=== PATIENT | female | born 1975 | race Caucasian/White ===

== ENCOUNTER 2017-03-06 19:52 | Emergency (ER) | payer SELFPAY ==
[~2017-03-06 19:52] MED LIST: PRENATAL FORMUL PO
--- NOTE | 2017-03-06 22:48 | DIAGNOSTIC IMAGING REPORT ---
PROCEDURE: US 2ND TRIMESTER INDICATION: ABNORMAL BLEEDING TECHNIQUE: Molina scale, color, and spectral Doppler images of the second trimester gravid uterus were obtained. COMPARISON: None. FINDINGS: Single intrauterine with variable presentation and posterior fundal placenta without previa. Normal closed cervix measures 3.2 cm. Heart rate 152 bpm. [place]-rump length 7.8 cm, 13 weeks 6 days. GEORGE 09/05/2017. IMPRESSION: 1. Single live intrauterine 13-week 6 days 2. GEORGE 09/05/2017.
--- NOTE | 2017-03-06 22:48 | DIAGNOSTIC IMAGING REPORT ---
PROCEDURE: US 2ND TRIMESTER INDICATION: ABNORMAL BLEEDING TECHNIQUE: Molina scale, color, and spectral Doppler images of the second trimester gravid uterus were obtained. COMPARISON: None. FINDINGS: Single intrauterine with variable presentation and posterior fundal placenta without previa. Normal closed cervix measures 3.2 cm. Heart rate 152 bpm. [place]-rump length 7.8 cm, 13 weeks 6 days. GEORGE 09/05/2017. IMPRESSION: 1. Single live intrauterine 13-week 6 days 2. GEORGE 09/05/2017.
--- NOTE | 2017-03-07 00:14 | ED CLINICAL REPORT ---
Clinical Report - Physicians/Mid Levels [facility] [address] [place] [address] 03/06/2017 19:52 Patient: RUSS BASS Time Seen: 20:06. Arrived- Police present. Historian- patient. Note: . CPT: ER phys charges level 4 (#[id number]). HISTORY OF PRESENT ILLNESS Chief Complaint: PELVIC PAIN and VAGINAL BLEEDING. This started today and still present. It was gradual in onset and has been waxing/waning. The symptoms are described as moderate. Modifying factors. Not worsened by anything. Not relieved by anything. The patient has had pelvic pain and abnormal bleeding described as heavier than normal period. She has missed a period. No urinary frequency or urgency of urination. (Russ said she believes she is about 2 weeks after having a positive home test. She had sudden onset bleeding around 1900 tonight. When giving urine in the ED she describes feeling/hearing a pop when she was using the bathroom.). Currently . confirmed with home test. Similar symptoms previously: ( Seen at [facility] ED on 11/02/2015 for miscariage). Recent medical care: Not recently seen/assessed. REVIEW OF SYSTEMS No nausea, vomiting, diarrhea, black stools or headache. No fever, chills, sore throat, cough or difficulty breathing. No chest pain, skin rash, enlarged lymph nodes or joint pain. All systems otherwise negative, except as recorded above. PAST HISTORY ( OB history: G 3; P 1; Ab 1. . . OB History. ADDITIONAL SURGERIES: .). No history of ectopic . Medications: None. Allergies: No Known Drug Allergy. SOCIAL HISTORY History of heavy IV drug use: heroin. ADDITIONAL NOTES The nursing notes have been reviewed. PHYSICAL EXAM Vital Signs: 03/06/2017 19:53 BP: 137/96. HR: 108. RR: 16. O2 saturation: 100%. Temp: 98.3 F. Pain level now: 5/10. Appearance: Alert. Oriented X3. Patient in mild distress. Eyes: No scleral icterus. ENT: Pharynx normal. No hearing deficit or pharyngeal erythema. Neck: Neck supple. CVS: Tachycardia. Heart sounds normal. Respiratory: No respiratory distress. Breath sounds normal. Abdomen: Soft. Back: Normal external inspection. No CVA tenderness. : Slight vaginal bleeding, consisting of bright red blood, via the cervical os. Cervical os closed. Bimanual exam normal. No tenderness present on bimanual exam. No tissue present in the cervical os. Skin: Skin warm and dry. Extremities: Extremities nontender. No lower extremity edema. Neuro: Oriented X 3. Mood/affect normal. No motor deficit. LABS, X-RAYS, AND EKG Pelvic Sonogram: An intrauterine (14 week size) is present. Cardiac activity present. No subchorionic hemorrhage or placental abruption. Study type: bedside transvaginal evaluation. The study was independently viewed by me and interpreted contemporaneously by me. Prior studies were not available for comparison. Laboratory Tests: UA-Culture if indicated: (BALJIT: 03/06/2017 20:03) ( MsgRcvd 03/06/2017 20:56) Final results Test Result Flag Units (Reference) URINE COLOR RED URINE APPEARANCE CLOUDY URINE GLUCOSE NEGATIVE (NEGATIVE) URINE BILIRUBIN NEGATIVE (NEGATIVE) URINE KETONE TRACE (NEGATIVE) URINE SPECIFIC GRAVITY >= 1.030 (1.010-1.030) URINE PH 6.0 (5.0-8.0) URINE PROTEIN 2+ (NEGATIVE) URINE UROBILINOGEN 0.2 EU/dL (0.2-1.0) URINE NITRITE NEGATIVE (NEGATIVE) URINE BLOOD 3+ (NEGATIVE) URINE LEUK ESTERASE NEGATIVE (NEGATIVE) URINE RBC >100 (TNTC) rbc/hpf (0-1) URINE WBC 5-10 wbc/hpf (0-1) URINE EPITHELIAL CELLS 3-5 EPI/hpf (0-5) URINE BACTERIA TRACE (<1+) (NONE SEEN) URINE COMMENT CULT NOT INDICATED URINE CULTURES ARE SET-UP BASED ON THE FOLLOWING CRITERIA:POSITIVE NITRITEPOSITIVE LEUKOCYTE ESTERASEGREATER THAN 10 WHITE BLOOD CELLSMODERATE (2+) OR GREATER BACTERIA CBC w Diff: (BALJIT: 03/06/2017 20:03) ( Mscvd 03/06/2017 20:45) Final results Test Result Flag Units (Reference) WHITE BLOOD COUNT 12.6 H K/uL (4.5-11.5) RED BLOOD COUNT 4.38 M/uL (4.00-5.20) HEMOGLOBIN 13.1 gm/dL (12.0-16.0) HEMATOCRIT 39.3 % (36.0-46.0) MEAN CELL VOLUME 90 fL (80-100) MEAN CORPUSCULAR HGB 30 pg (26-34) MEAN CORPUSCULAR HGB CONC 33 g/dL (31-37) RED CELL DISTRIBUTION WIDTH 13.2 % (11.6-14.8) PLATELET COUNT 346 K/uL (150-400) NEUTROPHIL % 76.3 H % (50-75) LYMPH % 16.2 L % (25-40) MONO % 5.5 % (3-14) EOSINOPHIL % 1.6 % (0-4) BASOPHIL % 0.4 % (0-2) PT with INR: (BALJIT: 03/06/2017 20:03) ( [facility] 03/06/2017 21:00) Final results Test Result Flag Units (Reference) INR 0.8 (0.8-1.2) Low Intensity Therapy: INR 1.5-2.0 PT range 18.5-23.1Mod.Intensity Therapy: INR 2.0-3.0 PT range 23.1-31.5High Intensity Therapy: INR 2.5-3.5 PT range 27.4-35.5High Intensity Therapy 2: INR 3.0-4.0 PT range 31.5-39.3 Urine Drug Screen: (BALJIT: 03/06/2017 20:03) ( [facility] 03/06/2017 21:08) Final results Test Result Flag Units (Reference) AMPHETAMINE/METHAMPHETAMINE NEGATIVE (NEGATIVE) BARBITURATE NEGATIVE (NEGATIVE) BENZODIAZEPINE NEGATIVE (NEGATIVE) CANNABINOID NEGATIVE (NEGATIVE) COCAINE NEGATIVE (NEGATIVE) ECSTASY NEGATIVE (NEGATIVE) METHADONE NEGATIVE (NEGATIVE) OPIATE NEGATIVE (NEGATIVE) The urine drug screen is a qualitative screening test fordrug overdose and abuse. All screen results should beconsidered as presumptive.Drugs screened for are as follows:BenzodiazepinesCocaineAmphetamines/MetamphetaminesTHC (Tetrahydrocannabinol)OpiatesBarbituratesEcstasyMethadonePositive results are unconfirmed. For confirmation, notifythe lab for the specimen to be sent to the reference lab.All confirmations must be performed by a differentmethodology.The ingestion of natural herbal and plant productscontaining Ephedra/Ephedra metabolites can produce in urineone or more substances capable of cross reacting withamphetamine/methamphetamine immunoassays. These testsprovide a preliminary result only. A more specificalternative chemical method must be used to obtain aconfirmed analytical result. CMP: (BALJIT: 03/06/2017 20:03) ( MsgRcvd 03/06/2017 21:20) Final results Test Result Flag Units (Reference) GLUCOSE 105 mg/dL (70-110) BUN 11 mg/dL (7-18) CREATININE 0.6 mg/dL (0.6-1.3) Estimated GFR >60 mL/min Estimated GFR- >60 mL/min Note: Persistent reduction over 3 months in eGFR<60 mL/min/1.73 m2 defines CKD. Patients with eGFR values>=60 mL/min/1.73 m2 may also have CKD if evidence ofpersistent proteinuria. Additional information may be foundat [email or web address].org. SODIUM 139 mmol/L (136-145) POTASSIUM 3.8 mmol/L (3.5-5.1) CHLORIDE 106 mmol/L (98-107) CARBON DIOXIDE 23 mmol/L (21-32) CALCIUM 9.4 mg/dL (8.5-10.1) TOTAL PROTEIN 6.8 g/dL (6.4-8.2) ALBUMIN 2.7 L g/dL (3.3-5.0) BILIRUBIN, TOTAL 0.2 mg/dL (0.0-1.0) ALKALINE PHOSPHATASE 71 U/L (46-116) AST (SGOT) 22 U/L (15-37) ALT (SGPT) 33 U/L (12-78) BETA HCG, QUANTITATIVE 35655 mIU/mL REFERENCE RANGE:Adult Males: <2 mIU/mLNon- Females: <6 mIU/mL Females:Approximate Approximate hCGGestational Age Range (mIU/mL) 0-1 week 0-501-2 weeks 40-3002-3 weeks 100-03599-1 weeks 500-52694-5 months 5,000-200,0002-3 months 10,000-100,0002nd trimester 3,000-50,0003rd trimester 1,000-50,000 Wet Prep: (BALJIT: 03/07/2017 00:10) ( [facility] 03/07/2017 02:59) Final results SPECIMEN DESCRIPTION: SWAB Test Result Flag Units (Reference) WET MOUNT CLUE CELLS:: NONE EPITHELIAL CELLS: NONE -- SOURCE?: CERVIX WHITE BLOOD CELLS: NONE TRICHOMONAS:: NONE -- YEAST:: NONE Type & Rh: (BALJIT: 03/06/2017 20:03) ( [facility] 03/06/2017 21:11) Final results Test Result Flag Units (Reference) PATIENT BLOOD TYPE A Positive . Pulse Oximetry: 03/06/2017 19:53 O2 saturation: 100%. PROGRESS AND PROCEDURES Course of Care: 21:30. Care tranferred from Dr Raphael to Dr Frausto secondary to change of shift. Labs and US pending 00:12 03/07/17. Minimal bleeding in ER. Pt brought in from detention and released due to medical problems. Has no ride or family to pick her up. Working on [employer] or other form of transportation. Patient/family counseled. Old medical records ordered. Disposition: Discharged. Condition: stable. CLINICAL IMPRESSION Threatened ; positive test in emergency department. Ultrasound demonstrated an intrauterine . INSTRUCTIONS No strenuous activity. Rest. Bed rest until better. Drink plenty of fluids. No sexual contact. Do not smoke. No alcohol. Warnings: Further evaluation is necessary. GENERAL WARNINGS: Return or contact your physician immediately if your condition worsens or changes unexpectedly, if not improving as expected, or if other problems arise. Understanding of the discharge instructions verbalized by patient. Follow-up with: Karyna Sutton DO, cushion padder, , [facility], [address] [place] [address] Follow up in one week. Call for an appointment. (Electronically signed by Jose Frausto MD 03/09/2017 15:32)
--- NOTE | 2017-03-07 00:14 | ED NURSING NOTES ---
Clinical Report - Nurses [facility] [address] [place] [address] 03/06/2017 19:52 Patient: RUSS BASS TRIAGE Triage time 19:53. Acuity: LEVEL 3. Chief Complaint: VAGINAL BLEEDING and ABDOMINAL CRAMPS and ABNORMAL BLEEDING (Russ said she believes she is about 2 weeks after having a positive home test. She had sudden onset bleeding around 1900 tonight. When giving urine in the ED she describes feeling/hearing a pop when she was using the bathroom.). Alert. No acute distress. SEPSIS SCREEN: Sepsis Screen: negative. Negative (no infection suspected/documented). --19:59 Bjorn Silva R.N. 19:53 03/06/17. BP: 137/96 (regular adult cuff) taken on the left arm, via an automated monitor, while lying. HR: 108 (tachycardic). RR: 16 (regular, unlabored and normal). O2 saturation: 100% on room air. Temp: 98.3 F (oral). Pain level now: 03/31. --19:59 Bjorn Silva R.N. Weight: 63.5 kg stated. Height/Length: 61 inches Per Patient. BMI: 26.5. --19:54 Bjorn Silva R.N. Medications None. --19:57 Bjorn Silva R.N. Medication/allergy information source: the patient. --19:59 Bjorn Silva R.N. Allergies No Known Drug Allergy. --19:57 Bjorn Silva R.N. History Historian: patient. Arrived in police custody and accompanied by police. This started today. No vomiting, fever, chills, fever or sweating episodes. No chest pain, difficulty breathing, constipation or diarrhea. Last oral intake by patient was (Around 1700 tonight). PAST MEDICAL HX: Last normal menstrual period- About 6 months ago, periods irregular. Possibly . confirmed with home test. OB history: G 3; P 1; Ab 1. SOCIAL HX: Current every day light tobacco smoker (cigarette)- less than 1/2 a pack per day. No alcohol use or drug use. She has not traveled outside the [place] The patient was not exposed to MRSA. ABUSE ASSESSMENT: Abuse assessment: The patient was asked "Do you feel safe in your home?" and "Has anyone hurt you or threatened to hurt you?". No report of abuse. SELF HARM ASSESSMENT: A self harm assessment was performed. The patient answered "no" to the question "Do you have thoughts of harming or killing yourself?" and "Have you recently had thoughts about harming or killing others?". FALL RISK ASSESSMENT: Fall risk assessment completed. No fall risk identified. NUTRITIONAL RISK ASSESSMENT: The nutritional risk assessment revealed no deficiencies. FUNCTIONAL ASSESSMENT: Functional assessment: no impairments noted. LEARNING NEEDS ASSESSMENT: The learning needs assessment revealed no barriers. SKIN INTEGRITY ASSESSMENT: Skin integrity risk assessment completed. No skin integrity risk identified. --19:59 Bjorn Silva R.N. SOCIAL HX: History of heavy drug use: heroin. Recently used drugs days ago. --21:47 Bjorn Silva R.N. PROBLEMS: . . OB History. --19:57 Bjorn Silva R.N. ADDITIONAL SURGERIES: . --19:57 Bjorn Silva R.N. Assessment GENERAL / NEURO / PSYCH: Alert. Oriented X 4. Appears in no acute distress. [place] Coma Scale: 15- eyes open spontaneously (4); best verbal response- oriented x 4 (5); best motor response- obeys commands (6). Patient appears calm and cooperative. RESPIRATORY: Respirations not labored. SKIN: Skin is warm and dry. --19:59 Bjorn Silva R.N. Interventions ID band on patient. To treatment room. --19:59 Bjorn Silva R.N. PHYSICAL ASSESSMENT Ambulatory to room. GENERAL / NEURO / PSYCH: Alert. Oriented X 4. Appears in no acute distress. Mood/affect abnormal (tearful). RESPIRATORY: No respiratory distress. Respirations not labored. Breath sounds within normal limits. CVS: Heart sounds within normal limits. Pulses: right radial 2+ and left radial 2+. GI / : Abdomen soft. Abdominal tenderness in the suprapubic area and lower abdomen. Bowel sounds within normal limits. Profuse vaginal bleeding present, consisting of bright red blood. SKIN: Skin is warm and dry. --20:15 Bjorn Silva R.N. NURSING PROGRESS NOTES The initial plan of care for this patient has been created This plan of care was discussed with the patient. Pulse oximeter and NIBP monitor placed on patient. Patient gowned. Warming measures: blanket applied. Reassurance given to the patient. Two patient identifiers checked. Call light placed in reach. Side rails up x 2. Bed placed in lowest position. Brakes of bed on. Patient ready for evaluation- ED physician notified. --19:59 Bjorn Silva R.N. 19:56 03/06/2017 Site #1 started via IV in the left antecubital space with an 20g angiocath, with aseptic technique and good blood return; one attempt. Blood drawn: rainbow set. Labeled in the presence of the patient and sent to the lab. Saline lock flushed with 10 mL saline. --20:11 Ai Brizuela R.N. 20:55 03/06/2017 Started bag #1 1000 mL IV Fluids IV NS (Saline); at 1000 mL/hr over 1 hour(s) via site #1. Allergies verified and confirmed 5 rights. IV patency established. IV site checked: no pain, redness, or swelling. IV flushed thoroughly pre- and post-medication administration. Completed per protocol. --20:55 Bjorn Silva R.N. 20:56 03/06/2017 Zofran (Ondansetron HCl) IVP 4 mg given over 2 minute(s) via site #1. Allergies verified and confirmed 5 rights. IV patency established. IV site checked: no pain, redness, or swelling. IV flushed thoroughly pre- and post-medication administration. IVP given by RN. --20:56 Bjorn Silva R.N. The patient is calm and resting quietly. --20:56 Bjorn Silva R.N. 20:56 03/06/17. BP: 124/73 (regular adult cuff) taken on the left arm, via an automated monitor, while lying. HR: 97 (tachycardic). RR: 16 (regular, unlabored and normal). O2 saturation: 100% on room air. --20:56 Bjorn Silva R.N. The patient is calm and resting quietly. --21:37 Bjorn Silva R.N. 21:37 03/06/17. BP: 129/77 (regular adult cuff) taken on the left arm, via an automated monitor, while lying. HR: 92 (normal rate). RR: 16 (regular, unlabored and normal). O2 saturation: 100% on room air. --21:37 Bjorn Silva R.N. 22:06 03/06/2017 IV Fluids IV NS Bag Change: bag #1 completed. Total amount infused: 1000. STARTED bag #2 (1000 mL) at 500 mL/hr via IV pump. Confirmed 5 rights. IV patency established. IV site checked: no pain, redness, or swelling. IV flushed thoroughly. --22:06 Bjorn Silva R.N. 23:11 03/06/17. BP: 123/76 (regular adult cuff) taken on the right arm, via an automated monitor, while lying. HR: 89 (normal rate). RR: 16 (regular, unlabored and normal). O2 saturation: 97% on room air. --23:12 Bjorn Silva R.N. The patient is calm and resting quietly. ( Pt is irritated stating she needs to go, she doesn't have money to get around, and she needs to go to the [employer] in [place].). --23:12 Bjorn Silva R.N. PELVIC EXAM: Pelvic exam performed by ED physician (Dr. Frausto.). Assisted by one nurse (Bjorn, RN). Preparation: pelvic tray and culture medium; patient placed in lithotomy position. Procedure: speculum and bimanual exam. Scant amount of vaginal discharge noted. Light amount of vaginal bleeding noted. Specimens collected and sent to lab: GC, chlamydia and wet prep. Status post-procedure: she was stable and no complications were noted. Total time of assist / procedure: (10). --00:13 Bjorn Silva R.N. 00:14 03/07/2017 Zofran IVP Response: no adverse reaction symptoms have improved. --00:14 Bjorn Silva R.N. 01:06 03/07/2017 NICOTINE Topical Patch/Pad 21 mg. Applied to the left upper arm. Allergies verified and confirmed 5 rights. --01:06 Bjorn Silva R.N. 01:42 03/07/2017 IV Fluids IV NS Discontinued: bag #2 discontinued upon discharge. Total amount infused: 500 mL. IV patency established. IV site checked: no pain, redness, or swelling. IV flushed thoroughly. --01:42 Bjorn Silva R.N. DISPOSITION / DISCHARGE 00:50 03/07/17. Departure time: 0050. Condition at departure: stable. The goals identified in the patient's plan of care were met. No learning barriers present. Discharge instructions provided and reviewed with the patient. Reviewed referral to Alcoholics Anonymous for followup (Substance Abuse Resource Packet given to Russ). Patient verbalized understanding. Written instructions provided in [place]. ( Russ verbalizes a want to stop doing methamphetamines and heroine. She was given a substance abuse resource packet. She understands the importance of abstaining from drug, alcohol, tobacco use while . She verbalizes importance of establishing OBGYN care.). The patient was discharged by the physician. She was discharged home and unaccompanied at time of discharge. She left the Emergency Department ambulatory. KEAGAN COMA SCORE: [place] Coma Scale: 15- eyes open spontaneously (4); best verbal response- oriented x 4 (5); best motor response- obeys commands (6). --01:41 Bjorn Silva R.N. 00:55 03/07/17. BP: 134/83 (regular adult cuff) taken on the left arm, via an automated monitor, while sitting. HR: 99 (normal rate). RR: 16 (regular, unlabored and normal). O2 saturation: 100% on room air. Temp: 98.3 F (oral). Pain level now: 0/10. --01:41 Bjorn Silva R.N. Locked/Released at 03/07/2017 1:42 by Bjorn Silva R.N.
--- NOTE | 2017-03-07 00:14 | ED CLINICAL REPORT ---
Clinical Report - Physicians/Mid Levels [facility] [address] [place] [address] 03/06/2017 19:52 Patient: RUSS BASS Time Seen: 20:06. Arrived- Police present. Historian- patient. Note: . CPT: ER phys charges level 4 (#[id number]). HISTORY OF PRESENT ILLNESS Chief Complaint: PELVIC PAIN and VAGINAL BLEEDING. This started today and still present. It was gradual in onset and has been waxing/waning. The symptoms are described as moderate. Modifying factors. Not worsened by anything. Not relieved by anything. The patient has had pelvic pain and abnormal bleeding described as heavier than normal period. She has missed a period. No urinary frequency or urgency of urination. (Russ said she believes she is about 2 weeks after having a positive home test. She had sudden onset bleeding around 1900 tonight. When giving urine in the ED she describes feeling/hearing a pop when she was using the bathroom.). Currently . confirmed with home test. Similar symptoms previously: ( Seen at [facility] ED on 11/02/2015 for miscariage). Recent medical care: Not recently seen/assessed. REVIEW OF SYSTEMS No nausea, vomiting, diarrhea, black stools or headache. No fever, chills, sore throat, cough or difficulty breathing. No chest pain, skin rash, enlarged lymph nodes or joint pain. All systems otherwise negative, except as recorded above. PAST HISTORY ( OB history: G 3; P 1; Ab 1. . . OB History. ADDITIONAL SURGERIES: .). No history of ectopic . Medications: None. Allergies: No Known Drug Allergy. SOCIAL HISTORY History of heavy IV drug use: heroin. ADDITIONAL NOTES The nursing notes have been reviewed. PHYSICAL EXAM Vital Signs: 03/06/2017 19:53 BP: 137/96. HR: 108. RR: 16. O2 saturation: 100%. Temp: 98.3 F. Pain level now: 5/10. Appearance: Alert. Oriented X3. Patient in mild distress. Eyes: No scleral icterus. ENT: Pharynx normal. No hearing deficit or pharyngeal erythema. Neck: Neck supple. CVS: Tachycardia. Heart sounds normal. Respiratory: No respiratory distress. Breath sounds normal. Abdomen: Soft. Back: Normal external inspection. No CVA tenderness. : Slight vaginal bleeding, consisting of bright red blood, via the cervical os. Cervical os closed. Bimanual exam normal. No tenderness present on bimanual exam. No tissue present in the cervical os. Skin: Skin warm and dry. Extremities: Extremities nontender. No lower extremity edema. Neuro: Oriented X 3. Mood/affect normal. No motor deficit. LABS, X-RAYS, AND EKG Pelvic Sonogram: An intrauterine (14 week size) is present. Cardiac activity present. No subchorionic hemorrhage or placental abruption. Study type: bedside transvaginal evaluation. The study was independently viewed by me and interpreted contemporaneously by me. Prior studies were not available for comparison. Laboratory Tests: UA-Culture if indicated: (BALJIT: 03/06/2017 20:03) ( MsgRcvd 03/06/2017 20:56) Final results Test Result Flag Units (Reference) URINE COLOR RED URINE APPEARANCE CLOUDY URINE GLUCOSE NEGATIVE (NEGATIVE) URINE BILIRUBIN NEGATIVE (NEGATIVE) URINE KETONE TRACE (NEGATIVE) URINE SPECIFIC GRAVITY >= 1.030 (1.010-1.030) URINE PH 6.0 (5.0-8.0) URINE PROTEIN 2+ (NEGATIVE) URINE UROBILINOGEN 0.2 EU/dL (0.2-1.0) URINE NITRITE NEGATIVE (NEGATIVE) URINE BLOOD 3+ (NEGATIVE) URINE LEUK ESTERASE NEGATIVE (NEGATIVE) URINE RBC >100 (TNTC) rbc/hpf (0-1) URINE WBC 5-10 wbc/hpf (0-1) URINE EPITHELIAL CELLS 3-5 EPI/hpf (0-5) URINE BACTERIA TRACE (<1+) (NONE SEEN) URINE COMMENT CULT NOT INDICATED URINE CULTURES ARE SET-UP BASED ON THE FOLLOWING CRITERIA:POSITIVE NITRITEPOSITIVE LEUKOCYTE ESTERASEGREATER THAN 10 WHITE BLOOD CELLSMODERATE (2+) OR GREATER BACTERIA CBC w Diff: (BALJIT: 03/06/2017 20:03) ( Mscvd 03/06/2017 20:45) Final results Test Result Flag Units (Reference) WHITE BLOOD COUNT 12.6 H K/uL (4.5-11.5) RED BLOOD COUNT 4.38 M/uL (4.00-5.20) HEMOGLOBIN 13.1 gm/dL (12.0-16.0) HEMATOCRIT 39.3 % (36.0-46.0) MEAN CELL VOLUME 90 fL (80-100) MEAN CORPUSCULAR HGB 30 pg (26-34) MEAN CORPUSCULAR HGB CONC 33 g/dL (31-37) RED CELL DISTRIBUTION WIDTH 13.2 % (11.6-14.8) PLATELET COUNT 346 K/uL (150-400) NEUTROPHIL % 76.3 H % (50-75) LYMPH % 16.2 L % (25-40) MONO % 5.5 % (3-14) EOSINOPHIL % 1.6 % (0-4) BASOPHIL % 0.4 % (0-2) PT with INR: (BALJIT: 03/06/2017 20:03) ( [facility] 03/06/2017 21:00) Final results Test Result Flag Units (Reference) INR 0.8 (0.8-1.2) Low Intensity Therapy: INR 1.5-2.0 PT range 18.5-23.1Mod.Intensity Therapy: INR 2.0-3.0 PT range 23.1-31.5High Intensity Therapy: INR 2.5-3.5 PT range 27.4-35.5High Intensity Therapy 2: INR 3.0-4.0 PT range 31.5-39.3 Urine Drug Screen: (BALJIT: 03/06/2017 20:03) ( [facility] 03/06/2017 21:08) Final results Test Result Flag Units (Reference) AMPHETAMINE/METHAMPHETAMINE NEGATIVE (NEGATIVE) BARBITURATE NEGATIVE (NEGATIVE) BENZODIAZEPINE NEGATIVE (NEGATIVE) CANNABINOID NEGATIVE (NEGATIVE) COCAINE NEGATIVE (NEGATIVE) ECSTASY NEGATIVE (NEGATIVE) METHADONE NEGATIVE (NEGATIVE) OPIATE NEGATIVE (NEGATIVE) The urine drug screen is a qualitative screening test fordrug overdose and abuse. All screen results should beconsidered as presumptive.Drugs screened for are as follows:BenzodiazepinesCocaineAmphetamines/MetamphetaminesTHC (Tetrahydrocannabinol)OpiatesBarbituratesEcstasyMethadonePositive results are unconfirmed. For confirmation, notifythe lab for the specimen to be sent to the reference lab.All confirmations must be performed by a differentmethodology.The ingestion of natural herbal and plant productscontaining Ephedra/Ephedra metabolites can produce in urineone or more substances capable of cross reacting withamphetamine/methamphetamine immunoassays. These testsprovide a preliminary result only. A more specificalternative chemical method must be used to obtain aconfirmed analytical result. CMP: (BALJIT: 03/06/2017 20:03) ( MsgRcvd 03/06/2017 21:20) Final results Test Result Flag Units (Reference) GLUCOSE 105 mg/dL (70-110) BUN 11 mg/dL (7-18) CREATININE 0.6 mg/dL (0.6-1.3) Estimated GFR >60 mL/min Estimated GFR- >60 mL/min Note: Persistent reduction over 3 months in eGFR<60 mL/min/1.73 m2 defines CKD. Patients with eGFR values>=60 mL/min/1.73 m2 may also have CKD if evidence ofpersistent proteinuria. Additional information may be foundat www.kidney.org. SODIUM 139 mmol/L (136-145) POTASSIUM 3.8 mmol/L (3.5-5.1) CHLORIDE 106 mmol/L (98-107) CARBON DIOXIDE 23 mmol/L (21-32) CALCIUM 9.4 mg/dL (8.5-10.1) TOTAL PROTEIN 6.8 g/dL (6.4-8.2) ALBUMIN 2.7 L g/dL (3.3-5.0) BILIRUBIN, TOTAL 0.2 mg/dL (0.0-1.0) ALKALINE PHOSPHATASE 71 U/L (46-116) AST (SGOT) 22 U/L (15-37) ALT (SGPT) 33 U/L (12-78) BETA HCG, QUANTITATIVE 47959 mIU/mL REFERENCE RANGE:Adult Males: <2 mIU/mLNon- Females: <6 mIU/mL Females:Approximate Approximate hCGGestational Age Range (mIU/mL) 0-1 week 0-501-2 weeks 40-3002-3 weeks 100-22019-7 weeks 500-18036-2 months 5,000-200,0002-3 months 10,000-100,0002nd trimester 3,000-50,0003rd trimester 1,000-50,000 Wet Prep: (BALJIT: 03/07/2017 00:10) ( [facility] 03/07/2017 02:59) Final results SPECIMEN DESCRIPTION: SWAB Test Result Flag Units (Reference) WET MOUNT CLUE CELLS:: NONE EPITHELIAL CELLS: NONE -- SOURCE?: CERVIX WHITE BLOOD CELLS: NONE TRICHOMONAS:: NONE -- YEAST:: NONE Type & Rh: (BALJIT: 03/06/2017 20:03) ( [facility] 03/06/2017 21:11) Final results Test Result Flag Units (Reference) PATIENT BLOOD TYPE A Positive . Pulse Oximetry: 03/06/2017 19:53 O2 saturation: 100%. PROGRESS AND PROCEDURES Course of Care: 21:30. Care tranferred from Dr Raphael to Dr Frausto secondary to change of shift. Labs and US pending 00:12 03/07/17. Minimal bleeding in ER. [facility] from [facility] and released due to medical problems. Has no ride or family to pick her up. Working on [employer] or other form of transportation. Patient/family counseled. Old medical records ordered. Disposition: Discharged. Condition: stable. CLINICAL IMPRESSION Threatened ; positive test in emergency department. Ultrasound demonstrated an intrauterine . INSTRUCTIONS No strenuous activity. Rest. Bed rest until better. Drink plenty of fluids. No sexual contact. Do not smoke. No alcohol. Warnings: Further evaluation is necessary. GENERAL WARNINGS: Return or contact your physician immediately if your condition worsens or changes unexpectedly, if not improving as expected, or if other problems arise. Understanding of the discharge instructions verbalized by patient. Follow-up with: Karyna Sutton DO, field artillery cannoneer, , [facility], [address] [place] [address] Follow up in one week. Call for an appointment. (Electronically signed by Jose Frausto MD 03/09/2017 15:32)
--- NOTE | 2017-03-07 00:15 | ED ORDER SUMMARY ---
..... Patient: RUSS BASS OrderSheet [facility] VisitID: [id number] [place] [address] 42y, F Registration Date/Time: 03/06/2017 ORDER SHEET Weight: 63.5 kg (stated) Allergies: No Known Drug Allergy GENERAL ORDERS: Serum Quantitative Urgent (20:11 03/06/2017 [facility]) (Ack 20:16 [facility] Body Sander) (20:30 JDeElena R.N.) CBC w Diff Urgent (20:12 03/06/2017 [facility]) (Ack 20:16 [facility]) (20:29 JDeElena R.N.) CMP Urgent (20:12 03/06/2017 [facility]) (Ack 20:16 [facility]) (20:29 JDeElena R.N.) UA-Culture if indicated Urgent (20:12 03/06/2017 [facility]) (Ack 20:16 [facility]) (20:29 JDeElena R.N.) PT with INR Urgent (20:12 03/06/2017 [facility]) (Ack 20:16 [facility]) (20:29 JDeElena R.N.) Type & Rh Urgent (20:12 03/06/2017 [facility]) (Ack 20:16 [facility]) (20:29 JDeElena R.N.) Urine Drug Screen Urgent (20:12 03/06/2017 [facility]) (Ack 20:16 [facility]) (20:30 JDeElena R.N.) US Pelvic Complete w Transvag Urgent (20:25 03/06/2017 [facility]) (Ack 20:27 [facility]) (Cancelled: Other21:51 [facility] Body Sander) US OB 2nd Trimester (UNKNOWN) Urgent (21:51 03/06/2017 [facility] verbal order read back to [facility]) (21:53 [facility] Body Sander) MEDICATION ORDERS: Nicotine Topical 21 mg (NOW) (00:59 03/07/2017 Tanya CASTRO) (1:06 aRdha Hall.Karli) IV FLUIDS: IV NS : initial bolus 1000 mL (1000 mL/hr), then 500 mL/hr for X2 (NOW) (20:11 03/06/2017 [facility]) (Ack 20:14 JTarikElengavin R.N.) (20:55 JTarikElena R.N.) Zofran IV 4 mg (NOW) (20:12 03/06/2017 [facility]) (Ack 20:14 Radha R.N.) (20:56 JDeKaria R.N.) ORDER SHEET NOTES: [Electronically signed by Bjorn Silva R.N. (01:42 03/07/2017)] [Electronically signed by Jose Frausto MD (15:32 03/09/2017)] [Electronically locked/signed by Bjorn Silva R.N. (01:42 03/07/2017)]
--- NOTE | 2017-03-07 00:15 | ED ORDER SUMMARY ---
..... Patient: RUSS BASS OrderSheet [facility] VisitID: [id number] [place] [address] 42y, F Registration Date/Time: 03/06/2017 ORDER SHEET Weight: 63.5 kg (stated) Allergies: No Known Drug Allergy GENERAL ORDERS: Serum Quantitative Urgent (20:11 03/06/2017 [facility]) (Ack 20:16 [facility] Portable Machine Cutter) (20:30 JDeElena R.N.) CBC w Diff Urgent (20:12 03/06/2017 [facility]) (Ack 20:16 [facility] C[facility]) (20:29 JDeElena R.N.) CMP Urgent (20:12 03/06/2017 [facility]) (Ack 20:16 [facility] Machine Cutter) (20:29 JDeElena R.N.) UA-Culture if indicated Urgent (20:12 03/06/2017 [facility]) (Ack 20:16 [facility] C[facility]) (20:29 JDeElena R.N.) PT with INR Urgent (20:12 03/06/2017 [facility]) (Ack 20:16 [facility] C[facility]) (20:29 JDeElena R.N.) Type & Rh Urgent (20:12 03/06/2017 [facility]) (Ack 20:16 [facility] C[facility]) (20:29 JDeElena R.N.) Urine Drug Screen Urgent (20:12 03/06/2017 [facility]) (Ack 20:16 [facility] C[facility]) (20:30 JDeElena R.N.) US Pelvic Complete w Transvag Urgent (20:25 03/06/2017 [facility]) (Ack 20:27 [facility] C[facility]) (Cancelled: Other21:51 [facility] Portable Machine Cutter) US OB 2nd Trimester (UNKNOWN) Urgent (21:51 03/06/2017 [facility] verbal order read back to [facility]) (21:53 [facility] Portable Machine Cutter) MEDICATION ORDERS: Nicotine Topical 21 mg (NOW) (00:59 03/07/2017 Tanya CASTRO) (1:06 Radha Hall.Karli) IV FLUIDS: IV NS : initial bolus 1000 mL (1000 mL/hr), then 500 mL/hr for X2 (NOW) (20:11 03/06/2017 [facility]) (Ack 20:14 JTarikElengavin R.N.) (20:55 JTarikElena R.N.) Zofran IV 4 mg (NOW) (20:12 03/06/2017 [facility]) (Ack 20:14 Radha R.N.) (20:56 JDeKaria R.N.) ORDER SHEET NOTES: [Electronically signed by Bjorn Silva R.N. (01:42 03/07/2017)] [Electronically signed by Jose Frausto MD (15:32 03/09/2017)] [Electronically locked/signed by Bjorn Silva R.N. (01:42 03/07/2017)]
--- NOTE | 2017-03-09 15:32 | ED MED RECONCILIATION SUMMARY ---
Patient: KALIRUSS Medication Reconciliation Report [facility] VisitID: [id number] [address] [place] [address] 42y, F Registration Date/Time: 03/06/2017 Weight: 63.5 kg Height/Length: 61 in. BMI: 26.5 ALLERGIES: No Known Drug Allergy The patient's Home Medications are listed below: NONE. The source(s) of the original Home Medication information: patient The following Medications were given to the patient in the Emergency Department: IV NS IV Fluids bolus 0, then 1000 mL/hr, administered: 03/06/2017 8:55:00 PM Zofran [IVP] IVP 4 mg, administered: 03/06/2017 8:56:00 PM NICOTINE [TOPICAL] Topical 21 mg, administered: 03/07/2017 1:06:00 AM The following Medications were prescribed to the patient: None.
--- NOTE | 2017-03-09 15:32 | ED MAR SUMMARY ---
..... Medication Administration Record [facility] [address] [place] [address] Patient: RUSS BASS Visit ID: [id number] 42y, F Weight: 63.5 kg Height/Length: 61 in BMI: 26.5 ALLERGIES: No Known Drug Allergy Start 20:55 03/06/2017 Bjorn Silva R.N., Stop 01:42 03/07/2017 Bjorn Sivla R.N. Medication Administered: IV NS (SALINE), Dose: IV Fluids over 1 hour(s), Rate: 1000 mL/hr, Dispensed: 1000 mL bag, Site: #1 left AC. Medication Ordered: IV NS : initial bolus 1000 mL (1000 mL/hr), then 500 mL/hr for X2 (NOW). Given 20:56 03/06/2017 Bjorn Silva R.N. Medication Administered: ZOFRAN [IVP] (ONDANSETRON HCL), Dose: 4 mg IVP over 2 minute(s), Site: #1 left AC. Medication Ordered: Zofran IV 4 mg (NOW). Given 01:06 03/07/2017 Bjorn Silva R.N. Medication Administered: NICOTINE [TOPICAL], Dose: 21 mg Patch/Pad Topical. Medication Ordered: Nicotine Topical 21 mg (NOW).
--- NOTE | 2017-03-09 15:32 | ED MAR SUMMARY ---
..... Medication Administration Record [facility] [address] [place] [address] Patient: RUSS BASS Visit ID: [id number] 42y, F Weight: 63.5 kg Height/Length: 61 in BMI: 26.5 ALLERGIES: No Known Drug Allergy Start 20:55 03/06/2017 Bjorn Silva R.N., Stop 01:42 03/07/2017 Bjorn Silva R.N. Medication Administered: IV NS (SALINE), Dose: IV Fluids over 1 hour(s), Rate: 1000 mL/hr, Dispensed: 1000 mL bag, Site: #1 left AC. Medication Ordered: IV NS : initial bolus 1000 mL (1000 mL/hr), then 500 mL/hr for X2 (NOW). Given 20:56 03/06/2017 Bjorn Silva R.N. Medication Administered: ZOFRAN [IVP] (ONDANSETRON HCL), Dose: 4 mg IVP over 2 minute(s), Site: #1 left AC. Medication Ordered: Zofran IV 4 mg (NOW). Given 01:06 03/07/2017 Bjorn Silva R.N. Medication Administered: NICOTINE [TOPICAL], Dose: 21 mg Patch/Pad Topical. Medication Ordered: Nicotine Topical 21 mg (NOW).
--- NOTE | 2017-03-09 15:32 | ED DISCHARGE INSTRUCTIONS ---
Patient: RUSS BASS General Instructions [facility] VisitID: [id number] [place] [address] 42y, F Registration Date/Time: 03/06/2017 INSTRUCTIONS No strenuous activity. Rest. Bed rest until better. Drink plenty of fluids. No sexual contact. Do not smoke. No alcohol. Warnings: Further evaluation is necessary. GENERAL WARNINGS: Return or contact your physician immediately if your condition worsens or changes unexpectedly, if not improving as expected, or if other problems arise. Understanding of the discharge instructions verbalized by patient. Follow-up with: Karyna Sutton DO, blind escort, , [facility], [address] [place] [address] Follow up in one week. Call for an appointment. ADDITIONAL INFORMATION Possible Miscarriage (Threatened ) During early (first three months), it is not uncommon to have a small amount of bleeding. This can be entirely normal. But heavy bleeding or severe cramping can be an early sign of miscarriage. A miscarriage means unexpected loss of your . In about half of patients with bleeding or cramping during early , these symptoms will stop and the will continue normally. However, half of the time a miscarriage will occur. A miscarriage may occur due to various causes. These include a problem with the babys chromosomes (genes that carry the information needed for life) or with fertilization or implantation that didnt happen correctly. In most cases no cause can be found. Be reassured that this is not the result of anything that you did wrong, and it will not interfere with your ability to become in the future. Home Care: To improve the chance of keeping this , you should do the following: Rest in bed until the pain and bleeding stop. Do not have sexual intercourse for the next 3 weeks. Use sanitary napkins instead of tampons. Do not douche. Follow-Up: Make an appointment with your doctor within the next week, or as directed by our staff. Note: If you had an ultrasound, it will be reviewed by a specialist. You will be notified of any new findings that may affect your care. Get Prompt Medical Attention if any of the following occur: Vaginal bleeding or pain for more than three days Heavy bleeding (soaking one new pad an hour over three hours) Fever of 100.4F (38C) or higher, or as directed by your healthcare provider Increasing lower abdominal pain Weakness, dizziness, or fainting Passage of anything that resembles tissue: pink or grayish membrane or solid material (save the tissue in a clean container and bring to the doctor) You have been given the following additional information: Possible Miscarriage (Threatened ) No strenuous activity. Rest. Bed rest until better. (Electronically signed by Jose Frausto MD 03/09/2017 15:32)
--- NOTE | 2017-03-09 15:32 | ED MED RECONCILIATION SUMMARY ---
Patient: KALIRUSS Medication Reconciliation Report [facility] VisitID: [id number] [address] [place] [address] 42y, F Registration Date/Time: 03/06/2017 Weight: 63.5 kg Height/Length: 61 in. BMI: 26.5 ALLERGIES: No Known Drug Allergy The patient's Home Medications are listed below: NONE. The source(s) of the original Home Medication information: patient The following Medications were given to the patient in the Emergency Department: IV NS IV Fluids bolus 0, then 1000 mL/hr, administered: 03/06/2017 8:55:00 PM Zofran [IVP] IVP 4 mg, administered: 03/06/2017 8:56:00 PM NICOTINE [TOPICAL] Topical 21 mg, administered: 03/07/2017 1:06:00 AM The following Medications were prescribed to the patient: None.
--- NOTE | 2017-03-09 15:32 | ED DISCHARGE INSTRUCTIONS ---
Patient: RUSS BASS General Instructions [facility] VisitID: [id number] [place] [address] 42y, F Registration Date/Time: 03/06/2017 INSTRUCTIONS No strenuous activity. Rest. Bed rest until better. Drink plenty of fluids. No sexual contact. Do not smoke. No alcohol. Warnings: Further evaluation is necessary. GENERAL WARNINGS: Return or contact your physician immediately if your condition worsens or changes unexpectedly, if not improving as expected, or if other problems arise. Understanding of the discharge instructions verbalized by patient. Follow-up with: Karyna Sutton DO, thread spooler, , [facility], [address] [place] [address] Follow up in one week. Call for an appointment. ADDITIONAL INFORMATION Possible Miscarriage (Threatened ) During early (first three months), it is not uncommon to have a small amount of bleeding. This can be entirely normal. But heavy bleeding or severe cramping can be an early sign of miscarriage. A miscarriage means unexpected loss of your . In about half of patients with bleeding or cramping during early , these symptoms will stop and the will continue normally. However, half of the time a miscarriage will occur. A miscarriage may occur due to various causes. These include a problem with the babys chromosomes (genes that carry the information needed for life) or with fertilization or implantation that didnt happen correctly. In most cases no cause can be found. Be reassured that this is not the result of anything that you did wrong, and it will not interfere with your ability to become in the future. Home Care: To improve the chance of keeping this , you should do the following: Rest in bed until the pain and bleeding stop. Do not have sexual intercourse for the next 3 weeks. Use sanitary napkins instead of tampons. Do not douche. Follow-Up: Make an appointment with your doctor within the next week, or as directed by our staff. Note: If you had an ultrasound, it will be reviewed by a specialist. You will be notified of any new findings that may affect your care. Get Prompt Medical Attention if any of the following occur: Vaginal bleeding or pain for more than three days Heavy bleeding (soaking one new pad an hour over three hours) Fever of 100.4F (38C) or higher, or as directed by your healthcare provider Increasing lower abdominal pain Weakness, dizziness, or fainting Passage of anything that resembles tissue: pink or grayish membrane or solid material (save the tissue in a clean container and bring to the doctor) You have been given the following additional information: Possible Miscarriage (Threatened ) No strenuous activity. Rest. Bed rest until better. (Electronically signed by Jose Frausto MD 03/09/2017 15:32)
== END 2017-03-07 00:50 | disposition home or self-care (01) ==
LOC: ED SRH 19:52
DX: O20.0 Threatened abortion (principal); Z3A.13 13 weeks gestation of pregnancy
CPT/HCPCS: 90001; 90004; 90100; 90155; 90195; 90197; 91227; 91228; 92760; 92761; 92762; 92763; 92764; 92765; 92766; 92767; 94060; 95059